=== PATIENT | male | born 1965 | race Caucasian/White ===

== ENCOUNTER 2018-12-01 16:22 | Emergency (ER) | payer BC ==
[2018-12-01 16:37] VITALS: BP 157/88
--- NOTE | 2018-12-01 17:08 | UC ---
Upper Extremity HPI - HPI Summary HPI Summary: 53 year old male presents with right shoulder pain after slipping and falling down 3-4 stairs 5 days ago. Denies hitting head, LOC, neck pain, or other injury. Pain is located over the right collar bone. Has full ROM with pain. Denies weakness, numbness, or tingling. - History of Current Complaint Chief Complaint: UCUpperExtremity Stated Complaint: RIGHT SHOULDER COMPLAINT Time Seen by Provider: 12/01/18 16:50 Hx Obtained From: Patient Pain Intensity: 2 - Allergies/Home Medications Allergies/Adverse Reactions: Allergies Allergy/AdvReac Type Severity Reaction Status Date / Time No Known Allergies Allergy Verified 12/01/18 16:37 Home Medications: Home Medications NK [No Home Medications Reported] 12/01/18 [History Confirmed 12/01/18] PMH/Surg Hx/FS Hx/Imm Hx Previously Healthy: Yes - Denies significant PMH - Surgical History Surgical History: Yes Surgery Procedure, Year, and Place: knee surgery, 20 years ago - Family History Known Family History: Positive: Non-Contributory - Social History Occupation: Employed Full-time Lives: With Family Alcohol Use: Rare Substance Use Type: None Smoking Status (MU): Never Smoked Tobacco Review of Systems All Other Systems Reviewed And Are Negative: Yes Constitutional: Negative: Fever, Chills Skin: Negative: Rash, Bruising Respiratory: Negative: Shortness Of Breath, Cough Cardiovascular: Negative: Palpitations, Chest Pain Gastrointestinal: Negative: Abdominal Pain, Vomiting, Diarrhea, Nausea Genitourinary: Positive: Negative Motor: Negative: Weakness Neurovascular: Negative: Decreased Sensation Musculoskeletal: Positive: Other: - See HPI Neurological: Positive: Negative Is Patient Immunocompromised?: No Physical Exam - Summary Physical Exam Summary: GENERAL APPEARANCE: Well developed, well nourished, alert and cooperative, and appears to be in no acute distress. HEAD: Atraumatic. normocephalic. EYES: PERRL, EOM intact. Vision is grossly intact. NECK: Neck supple, non-tender. CARDIAC: Normal S1 and S2. No S3, S4 or murmurs. Rhythm is regular. There is no peripheral edema, cyanosis or pallor. Extremities are warm and well perfused. Capillary refill is less than 2 seconds. Peripheral pulses intact. LUNGS: Clear to auscultation without rales, rhonchi, wheezing or diminished breath sounds. ABDOMEN: Positive bowel sounds. Soft, nondistended, nontender. No guarding or rebound. No masses or hepatosplenomegally. MUSKULOSKELETAL: Tenderness over the right clavicle without gross deformity, crepitus, or ecchymosis. Full ROM however does report some pain with abduction and adduction. Circluation and sensation intact distally. BACK: Examination of the spine reveals normal gait and posture, no spinal deformity or tenderness, decreased range of motion or muscular spasm. NEUROLOGICAL: Strength and sensation symmetric and intact. SKIN: Skin normal color, texture and turgor with no lesions or eruptions. Triage Information Reviewed: Yes Vital Signs: Initial Vital Signs Temp 97.6 F 12/01/18 16:34 Pulse 69 12/01/18 16:34 Resp 16 12/01/18 16:34 BP 157/88 12/01/18 16:34 Pulse Ox 99 12/01/18 16:34 Vital Signs Reviewed: Yes Upper Extremity Course/Dx - Course Course Of Treatment: 53 year old male presents with right shoulder pain after slipping and falling down 3-4 stairs 5 days ago. Denies hitting head, LOC, neck pain, or other injury. Pain is located over the right collar bone. Has full ROM with pain. Denies weakness, numbness, or tingling. Afebrile. Hypertensive otherwise vital signs stable. Exam revealed tenderness over the right clavicle without gross deformity, crepitus, or ecchymosis. Full ROM however does report some pain with abduction and adduction. Circluation and sensation intact. An x- ray of the shoulder was ordered however not completed as patient left before completing. He left before I was made aware he wanted to leave therefore did not receive any discharge instructions. - Differential Dx/Diagnosis Differential Diagnosis/HQI/PQRI: Contusion, Fracture (Closed), Strain, Sprain Provider Diagnosis: Acute shoulder pain, Elevated blood pressure reading Discharge - Sign-Out/Discharge Documenting (check all that apply): Patient Departure All imaging exams completed and their final reports reviewed: No Studies - Discharge Plan Condition: Stable Disposition: ELOPEMENT Patient Education Materials: Shoulder Pain (ED) - Billing Disposition and Condition Condition: STABLE Disposition: Elopement
== END 2018-12-01 17:30 | disposition home or self-care (01) ==
LOC: UCCORT 16:22
DX: M25.511 Pain in right shoulder (principal); R03.0 Elevated blood-pressure reading, without diagnosis of hypertension; W01.0XXA Fall on same level from slipping, tripping and stumbling without subsequent striking against object, initial encounter; W10.9XXA Fall (on) (from) unspecified stairs and steps, initial encounter; Y92.9 Unspecified place or not applicable
CPT/HCPCS: 99202; G0463

== ENCOUNTER 2018-12-02 15:11 | Emergency (ER) | payer BC ==
[2018-12-02 16:28] VITALS: BP 145/75
--- NOTE | 2018-12-02 16:35 | UC ---
General HPI - HPI Summary HPI Summary: 6 days ago, pt slipped on some ice and injured his r collar bone. c/o ongoing pain. denies head, neck and back injury. - History of Current Complaint Chief Complaint: UCUpperExtremity Stated Complaint: RIGHT SHOULDER PAIN Time Seen by Provider: 12/02/18 16:29 Hx Obtained From: Patient Onset/Duration: Sudden Onset Timing: Constant Pain Intensity: 3 Associated Signs & Symptoms: Negative: Back Pain, Chest Pain, Weakness - Allergy/Home Medications Allergies/Adverse Reactions: Allergies Allergy/AdvReac Type Severity Reaction Status Date / Time No Known Allergies Allergy Verified 12/02/18 16:28 PMH/Surg Hx/FS Hx/Imm Hx Previously Healthy: Yes - Surgical History Surgical History: Yes Surgery Procedure, Year, and Place: knee surgery, 20 years ago - Family History Known Family History: Positive: Non-Contributory - Social History Alcohol Use: Rare Substance Use Type: None Smoking Status (MU): Never Smoked Tobacco Review of Systems All Other Systems Reviewed And Are Negative: Yes Constitutional: Positive: Negative Skin: Positive: Negative Eyes: Positive: Negative ENT: Positive: Negative Respiratory: Positive: Negative Cardiovascular: Positive: Negative Gastrointestinal: Positive: Negative Genitourinary: Positive: Negative Motor: Positive: Negative Neurovascular: Positive: Negative Neurological: Negative: Weakness, Paresthesia, Numbness Psychological: Positive: Negative Physical Exam Triage Information Reviewed: Yes Appearance: Well-Appearing Vital Signs: Initial Vital Signs Temp 98.7 F 12/02/18 16:24 Pulse 60 12/02/18 16:24 Resp 17 12/02/18 16:24 BP 145/75 12/02/18 16:24 Pulse Ox 99 12/02/18 16:24 Vital Signs Reviewed: Yes Eyes: Positive: Conjunctiva Clear ENT: Positive: Normal ENT inspection Neck: Positive: Supple, Nontender, No Lymphadenopathy, Other: - c-spine is non tender. Respiratory: Positive: Chest non-tender, Lungs clear, Normal breath sounds Cardiovascular: Positive: RRR, No Murmur Abdomen Description: Positive: Nontender Bowel Sounds: Positive: Present Musculoskeletal: Positive: Other: - RUE: no gross deformity, swelling or discoloration. shoulder is non tender but mid clavicle area is tender. No crepitation or instability. Negative drop arm and anterior stress test at shoulder. arm/hand has full s/v/m function. Head is atraumatic. Back is non tender. Neurological: Positive: Alert Psychological: Positive: Age Appropriate Behavior Skin Exam: Normal Skin: Negative: Rashes Diagnostics - Radiology No standard instances Radiology Interpretation Completed By: Radiologist - R clavicle=NO ACUTE OSSEOUS INJURY. IF SYMPTOMS PERSIST, RECOMMEND REPEAT IMAGING. Course/Dx - Differential Dx - Multi-Symptom Differential Diagnoses: Other - fx, mm strain. no concern for shoulder pathology such as fx, dislocation and rotator cuff injury. - Diagnoses Provider Diagnosis: Muscle strain Discharge - Sign-Out/Discharge Documenting (check all that apply): Patient Departure All imaging exams completed and their final reports reviewed: No Studies - Discharge Plan Condition: Stable Disposition: HOME Patient Education Materials: Muscle Strain (DC) Referrals: Steven Daigle MD [Medical Doctor] - Additional Instructions: follow up Dr Daigle if not better in 5-7 days or sooner if worse. - Billing Disposition and Condition Condition: STABLE Disposition: Home
== END 2018-12-02 17:11 | disposition home or self-care (01) ==
LOC: UCCORT 15:11
DX: S46.911A Strain of unspecified muscle, fascia and tendon at shoulder and upper arm level, right arm, initial encounter (principal); W18.49XA Other slipping, tripping and stumbling without falling, initial encounter; Y92.9 Unspecified place or not applicable
CPT/HCPCS: 99211; G0463